=== PATIENT | female | born 1975 | race Caucasian/White ===

== ENCOUNTER 2023-10-06 10:35 | Outpatient (REF) | payer OTHER, MEDICAID, SELFPAY ==
--- NOTE | ~2023-10-06 | XR_ITS ---
EXAMINATION: XR KNEE, RIGHT CLINICAL INFORMATION: Pain in right knee. COMPARISON: None available. TECHNIQUE: Three views of the right knee. FINDINGS: Moderate joint effusion. Moderate narrowing of the medial compartment. Tiny marginal osteophytes. XR/XR knee RT 3V IMPRESSION: Moderate joint effusion. Moderate narrowing of the medial compartment.
== END 2023-10-06 10:36 | disposition home or self-care (01) ==
LOC: HO.HOSX 10:35
PROVIDERS: Visit Provider Orthopaedic Surgery
DX: M25.561 Pain in right knee (principal)
CPT/HCPCS: 73562

== ENCOUNTER 2023-10-06 13:50 | Outpatient (AMB) | payer OTHER, SELFPAY ==
--- NOTE | 2023-10-06 14:05 | MHC.OFFVIS ---
Intake Visit Reasons: Right knee pain Intake Note: Ms. Asif is a 48-year-old female who presents with complaints of progressively worsening right knee pain. She describes her pain as sharp in nature. Her pain has gotten worse over the last year in spite of continued non operative treatments. The patient states that she has had 2 cortisone injections in the past which gave her no relief. She has also failed the last 3 months of a home exercise program. She has tried meloxicam and Tylenol for 3 months which gave her minimal relief. The patient states that her right knee pain is now interfering with her activities of daily living and her ability to sleep well through the night. Allergies milk Allergy (Unknown, Uncoded 10/06/23 14:08) abdominal pain, diarrhea tightening in throat Medication List - Last Reconciled 10/06/23 by Calvin Lay MD fluticasone furoate-vilanterol 50-25 mcg/dose (Breo Ellipta) inhalation magnesium glycinate mg PO multivitamin 1 tab PO DAILY norethindrone ac-eth estradiol 1-20 mg-mcg (Microgestin) 1 tab PO DAILY sertraline 200 mg PO DAILY trazodone 25 mg PO DAILY [facility] Surgical History (Updated 10/06/23 @ 14:12 by ISIAH Milian) History of tonsillectomy and adenoidectomy History of carpal tunnel release H/O section History of placement of ear tubes [place] teeth removed H/O tubal ligation Social History (Updated 10/06/23 @ 14:12 by ISIAH Milian) Alcohol intake: never Patient Tobacco Use Status: Never used Tobacco Physical Exam Const Other: Well-nourished well-developed very friendly female awake alert and oriented x3 in no acute distress Extrem Other: Bilateral lower extremity examination shows good capillary refill, no skin lesions noted, normal sensation light touch Right knee examination shows a minimal effusion, palpable crepitus with range of motion, pain with range of motion, range of motion from -3 degrees to 110 degrees, no instability Results Reviewed Results Reviewed: X-rays of the patient's right knee show joint space narrowing, subchondral sclerosis, no acute bony abnormalities Assessment & Plan Assessment & Plan (1) Right knee pain: Code(s): M25.561 - Pain in right knee Category: Medical Plan Ms. Asif presents with progressively worsening right knee pain due to early degenerative joint disease. I had a lengthy discussion with the patient regarding the treatment options. He wishes to hold off on surgery for as long as possible. I agree with this plan. She has not gotten good relief from cortisone injections in the past. Thus, I will see whether or not the patient's insurance company will cover a viscosupplementation injection for her right knee. I will see her back once the injection is available. Feel free to call me at any time should questions regarding her orthopedic management arise. Thank you very much for asking me to see this very friendly patient. I spent 22 minutes in reviewing the patient's records and imaging studies, seeing the patient and documenting in the medical record. Orders: Orders XR knee RT 3V Today M25.561 - Pain in right knee Coding Level of Care Code New Pt Level 3 (88522) Diagnoses Right knee pain M25.561
== END 2023-10-06 14:26 | disposition home or self-care (01) ==
PROVIDERS: PCP Physician Assistant; Visit Provider Orthopaedic Surgery
DX: M17.11 Unilateral primary osteoarthritis, right knee (principal)
CPT/HCPCS: 99203

== ENCOUNTER 2023-10-19 08:00 | Outpatient (AMB) | payer OTHER, MEDICAID, SELFPAY ==
--- NOTE | 2023-10-19 08:05 | A.OFFVIS_ITS ---
Intake Visit Reasons: OV- right knee durolane injection Intake Note: Maggie is a 48 year old female who presents with complaints of progressively worsening right knee pain. She describes her pain as sharp in nature. Her pain has gotten worse over the last year in spite of continued non operative treatments. She has had cortisone injections in the past which gave her minimal relief. She has also tried Tylenol and anti-inflammatory medicines which gave her only mild relief. She has done physical therapy exercises which aggravated her pain. Allergies milk Allergy (Unknown, Uncoded 10/19/23 08:06) abdominal pain, diarrhea tightening in throat Medication List - Last Reconciled 10/20/23 by Calvin Lay MD fluticasone furoate-vilanterol 50-25 mcg/dose (Breo Ellipta) inhalation magnesium glycinate mg PO multivitamin 1 tab PO DAILY norethindrone ac-eth estradiol 1-20 mg-mcg (Microgestin) 1 tab PO DAILY sertraline 200 mg PO DAILY trazodone 25 mg PO DAILY [facility] Surgical History (Updated 10/06/23 @ 14:12 by ISIAH Milian) History of tonsillectomy and adenoidectomy History of carpal tunnel release H/O section History of placement of ear tubes [place] teeth removed H/O tubal ligation Social History (Updated 10/06/23 @ 14:12 by ISIAH Milian) Alcohol intake: never Patient Tobacco Use Status: Never used Tobacco Physical Exam Const Other: Well-nourished well-developed very friendly female awake alert and oriented x3 in no acute distress Extrem Other: Bilateral lower extremity examination shows good capillary refill, no skin lesions noted, normal sensation light touch Right knee examination shows a minimal effusion, mild crepitus with range of motion, pain with range of motion, no instability Office Procedures Joint Injection/Drain Joint Injection/Drain Primary Site: right knee Prep: site was prepped using aseptic technique Injected: 60 mg of (Durolane viscosupplementation) and 1% plain lidocaine Procedure: The patient tolerated the procedure well Coding 29175 - Large joint Procedure code (CPT) selection complete Results Reviewed Results Reviewed: X-rays of the patient's right knee show joint space narrowing, no acute bony abnormalities Assessment & Plan Assessment & Plan (1) Osteoarthritis of right knee: Code(s): M17.11 - Unilateral primary osteoarthritis, right knee Category: Medical Plan Ms. Asif presents with right knee pain due to degenerative joint disease. I had a lengthy discussion with the patient regarding the treatment options. The risks and benefits of a Durolane viscosupplementation injection were discussed at length with the patient. The patient wished to proceed. She tolerated the injection well. She will continue with her activity modifications. She will follow up with me on an as-needed basis should her symptoms not plateau at an unacceptable level over the next few months. Feel free to call me at any time should questions regarding her orthopedic management arise. I spent 22 minutes in reviewing the patient's records and imaging studies, seeing the patient and documenting in the medical record. Orders: Orders AMB Joint Injection/Aspiration 10/19/23 M17.11 - Unilateral primary osteoarthritis, right knee Coding Level of Care Code Est Pt Level 3 (28973) Diagnoses Osteoarthritis of right knee M17.11 CPT Codes Coding - 05311 Large joint: 07035 - Large joint ([id number])
== END 2023-10-19 08:29 | disposition home or self-care (01) ==
PROVIDERS: PCP Physician Assistant; Visit Provider Orthopaedic Surgery
DX: M17.11 Unilateral primary osteoarthritis, right knee (principal)
CPT/HCPCS: 20610; 99213

== ENCOUNTER → 2023-10-19 08:00 | Outpatient (BNVA) | payer OTHER, MEDICAID, SELFPAY | PROVIDERS: PCP Physician Assistant; Visit Provider Orthopaedic Surgery | DX: M17.11 Unilateral primary osteoarthritis, right knee (principal) | CPT/HCPCS: 20610; J7318 ==

== ENCOUNTER 2023-12-08 14:52 | Outpatient (AMB) | payer OTHER, MEDICAID, SELFPAY ==
--- NOTE | 2023-12-08 14:53 | MHC.OFFVIS ---
Vital Signs 12/08/23 15:00 Height 5 ft 1 in Weight 285 lb BMI 53.8 Intake Visit Reasons: Right knee pain Intake Note: Maggie is a 48 year old female who presents with complaints of progressively worsening right knee pain and giving way. The patient states that her pain has gotten worse over the last few years in spite of continued non operative treatments. She did aggravate her right knee recently when she twisted her knee while walking on the beach at [facility]. Since that time her symptoms have gotten progressively worse. She has failed the last 6 weeks of conservative treatment. She has had cortisone injections in the past which gave her minimal relief. She has also done physical therapy exercises which aggravated her pain. She has tried Tylenol and anti-inflammatory medicines which gave her minimal relief. Allergies milk Allergy (Unknown, Uncoded 10/19/23 08:06) abdominal pain, diarrhea tightening in throat Medication List - Last Reconciled 12/08/23 by Calvin Lay MD fluticasone furoate-vilanterol 50-25 mcg/dose (Breo Ellipta) inhalation magnesium glycinate mg PO multivitamin 1 tab PO DAILY norethindrone ac-eth estradiol 1-20 mg-mcg (Microgestin) 1 tab PO DAILY sertraline 200 mg PO DAILY trazodone 25 mg PO DAILY [facility] Surgical History (Updated 10/06/23 @ 14:12 by ISIAH Milian) History of tonsillectomy and adenoidectomy History of carpal tunnel release H/O section History of placement of ear tubes [place] teeth removed H/O tubal ligation Social History (Updated 10/06/23 @ 14:12 by ISIAH Milian) Alcohol intake: never Patient Tobacco Use Status: Never used Tobacco Physical Exam Vital Signs: BMI result Body Mass Index 53.8 Const Other: Well-nourished well-developed very friendly female awake alert and oriented x3 in no acute distress Extrem Other: Bilateral lower extremity examination shows good capillary refill, no skin lesions noted, normal sensation light touch Right knee examination shows a minimal effusion, mild crepitus with range of motion, tenderness along her medial joint line, positive Johan's test, no instability Results Reviewed Results Reviewed: Standing full weight-bearing x-rays of the patient's right knee show mild joint space narrowing, no acute bony abnormalities Assessment & Plan Assessment & Plan (1) Right knee pain: Code(s): M25.561 - Pain in right knee Category: Medical Plan Ms. Asif presents with right knee pain and mechanical symptoms most likely due to a tear of her medial meniscus. Thus, I will send the patient for an MRI of her right knee for further evaluation. I will see her back once the MRI is completed to discuss the findings and treatment options. Feel free to call me at any time should questions regarding her orthopedic management arise. I spent 21 minutes in reviewing the patient's records and imaging studies, seeing the patient and documenting in the medical record. Orders: Orders MR knee RT wo con 12/08/23 M25.561 - Pain in right knee Coding Level of Care Code Est Pt Level 3 (18636) Complex EM visit Add On G2211 Diagnoses Right knee pain M25.561
[2023-12-08 15:00] VITALS: BMI 53.8
== END 2023-12-08 15:12 | disposition home or self-care (01) ==
PROVIDERS: PCP Physician Assistant; Visit Provider Orthopaedic Surgery
DX: M25.561 Pain in right knee (principal)
CPT/HCPCS: 99213; G2211

== ENCOUNTER → 2023-12-08 14:52 | Outpatient (BNVA) | payer OTHER, MEDICAID, SELFPAY | PROVIDERS: PCP Physician Assistant; Visit Provider Orthopaedic Surgery ==

== ENCOUNTER 2024-01-10 08:30 | Outpatient (AMB) | payer OTHER, MEDICAID, SELFPAY ==
--- NOTE | 2024-01-10 08:33 | MHC.OFFVIS ---
Vital Signs 01/10/24 08:33 Weight 285 lb Intake Visit Reasons: OV- MRI review Right Knee Intake Note: Maggie is a 48 year old female who presents with complaints of progressively worsening right knee pain and giving way. The patient states that her pain has gotten worse over the last few years in spite of continued non operative treatments. She did aggravate her right knee recently when she twisted her knee while walking on the beach at [facility]. Since that time her symptoms have gotten progressively worse. She has failed the last 6 weeks of conservative treatment. She has had cortisone injections in the past which gave her minimal relief. She has also done physical therapy exercises which aggravated her pain. She has tried Tylenol and anti-inflammatory medicines which gave her minimal relief. She has tried wearing a knee brace which gives her minimal relief. Allergies milk Allergy (Unknown, Uncoded 10/19/23 08:06) abdominal pain, diarrhea tightening in throat Medication List - Last Reconciled 01/10/24 by Calvin Lay MD fluticasone furoate-vilanterol 50-25 mcg/dose (Breo Ellipta) inhalation magnesium glycinate mg PO multivitamin 1 tab PO DAILY norethindrone ac-eth estradiol 1-20 mg-mcg (Microgestin) 1 tab PO DAILY sertraline 200 mg PO DAILY trazodone 25 mg PO DAILY [facility] Surgical History History of tonsillectomy and adenoidectomy History of carpal tunnel release H/O section History of placement of ear tubes [place] teeth removed H/O tubal ligation Social History Alcohol intake: never Patient Tobacco Use Status: Never used Tobacco Physical Exam Const Other: Well-nourished well-developed very friendly female awake alert and oriented x3 in no acute distress Extrem Other: Bilateral lower extremity examination shows good capillary refill, no skin lesions noted, normal sensation light touch Right knee examination shows a minimal effusion, mild crepitus with range of motion, tenderness along her medial joint line, positive Johan's test, no instability Results Reviewed Results Reviewed: Standing full weight-bearing x-rays of the patient's right knee show mild diffuse degenerative changes as well as a tear of the posterior horn of the medial meniscus Assessment & Plan Assessment & Plan (1) Tear of medial meniscus of right knee: Code(s): S83.241A - Other tear of medial meniscus, current injury, right knee, initial encounter Category: Medical Plan Ms. Asif presents with progressively worsening right knee pain and mechanical symptoms due to a tear of her medial meniscus as well as early degenerative joint disease. I had a lengthy discussion with the patient regarding the treatment options. The risks and benefits of right knee arthroscopic surgery were discussed at length with the patient. The patient wishes to proceed with surgery. Surgery will most likely involve right knee diagnostic arthroscopy with arthroscopic partial medial meniscectomy. The patient does understand that she may not get 100% relief of her symptoms depending on the severity of her degenerative changes. The patient will be scheduled for next available date. She will follow-up as instructed. Feel free to call me at any time should questions regarding her orthopedic management arise. I spent 20 minutes in reviewing the patient's records and imaging studies, seeing the patient and documenting in the medical record. Coding Level of Care Code Est Pt Level 3 (98438) Complex EM visit Add On G2211 Diagnoses Tear of medial meniscus of right knee S83.241A
== END 2024-01-10 08:49 | disposition home or self-care (01) ==
PROVIDERS: PCP Physician Assistant; Visit Provider Orthopaedic Surgery
DX: S83.241A Other tear of medial meniscus, current injury, right knee, initial encounter (principal)
CPT/HCPCS: 99213; G2211

== ENCOUNTER → 2024-01-10 08:30 | Outpatient (BNVA) | payer OTHER, MEDICAID, SELFPAY | PROVIDERS: PCP Physician Assistant; Visit Provider Orthopaedic Surgery ==

== ENCOUNTER 2024-01-30 07:54 | Day surgery (SDC) | payer OTHER, MEDICAID, SELFPAY ==
[2024-01-26 09:39] VITALS: BMI 53.8
--- NOTE | 2024-01-26 14:17 | HO.ANESPROP2 ---
Documented by User: Jillian Lopez NP 01/26/24 14:18 HPI - Anesthesia Eval Consult details Narrative: 48yo F for Right Knee Arthroscopy,with partial medial meniscectomy PMFSH Active Problems Active Problems: All Active Problems Tear of medial meniscus of right knee (Acute) Osteoarthritis of right knee (Acute) Right knee pain (Acute) Past Medical History Medical History Diabetes Sleep apnea Asthma Osteoarthritis Surgical History Surgical History History of tonsillectomy and adenoidectomy History of carpal tunnel release H/O section History of placement of ear tubes [place] teeth removed H/O tubal ligation Social History Social History Alcohol intake: never Patient Tobacco Use Status: Never used Tobacco Use of substances other than those prescribed or required for medical reasons: No Are you DNR?: No Advance Directives: No Advance Directives Information Provided: Yes Advance Directives on File: No Recently lost weight without trying: No Nutrition Risks: No Nutritional Risk Patient : No Meds Allergies Allergy/AdvReac Type Severity Reaction Status Date / Time milk Allergy Intermediate Gastrointestinal Verified 01/26/24 09:37 Upset/tightening of throat amoxicillin [From Augmentin] Allergy Stomach Verified 01/30/24 08:50 Upset clavulanic acid Allergy Stomach Verified 01/30/24 08:50 [From Augmentin] Upset Home Medications ?Medication ?Instructions ?Recorded ?Confirmed ?Last Taken ?Type fluticasone furoate 50 1 inh inhalation DAILY 10/06/23 01/26/24 01/30/24 History mcg-vilanterol 25 mcg/dose inhalation powder (Breo Ellipta) magnesium glycinate 100 mg PO DAILY 10/06/23 01/26/24 Unknown History multivitamin 1 tab PO DAILY 10/06/23 01/26/24 Unknown History norethindrone acetate 1 mg-ethinyl 1 tab PO DAILY 10/06/23 01/26/24 Unknown History estradiol 20 mcg tablet (Microgestin) sertraline 200 mg capsule 200 mg PO DAILY 10/06/23 01/26/24 Unknown History trazodone 50 mg tablet 25 mg PO DAILY 10/06/23 01/26/24 Unknown History albuterol sulfate 90 mcg/actuation 2 puff inhalation Q4H PRN 01/26/24 01/26/24 Unknown History aerosol inhaler Shortness Of Breath Or Wheezing Exam Height,Weight and Vital Signs: Height 5 ft 1 in Weight 129.274 kg Assessment and Plan Assessment Anesthesia Assessment: Chart Reviewed Documented by User: Ivet Hannah MD 01/30/24 09:22 [facility] Past Medical History Medical History Diabetes Sleep apnea Asthma Osteoarthritis Family History Family history of problems with anesthesia: No Surgical History Surgical History History of tonsillectomy and adenoidectomy History of carpal tunnel release H/O section History of placement of ear tubes [place] teeth removed H/O tubal ligation History of Problems with Anesthesia: No Social History Social History Alcohol intake: never Patient Tobacco Use Status: Never used Tobacco Use of substances other than those prescribed or required for medical reasons: No Are you DNR?: No Advance Directives: No Advance Directives Information Provided: Yes Advance Directives on File: No Recently lost weight without trying: No Nutrition Risks: No Nutritional Risk Patient : No Meds Allergies Allergy/AdvReac Type Severity Reaction Status Date / Time milk Allergy Intermediate Gastrointestinal Verified 01/26/24 09:37 Upset/tightening of throat amoxicillin [From Augmentin] Allergy Stomach Verified 01/30/24 08:50 Upset clavulanic acid Allergy Stomach Verified 01/30/24 08:50 [From Augmentin] Upset Home Medications ?Medication ?Instructions ?Recorded ?Confirmed ?Last Taken ?Type fluticasone furoate 50 1 inh inhalation DAILY 10/06/23 01/26/24 01/30/24 History mcg-vilanterol 25 mcg/dose inhalation powder (Breo Ellipta) magnesium glycinate 100 mg PO DAILY 10/06/23 01/26/24 Unknown History multivitamin 1 tab PO DAILY 10/06/23 01/26/24 Unknown History norethindrone acetate 1 mg-ethinyl 1 tab PO DAILY 10/06/23 01/26/24 Unknown History estradiol 20 mcg tablet (Microgestin) sertraline 200 mg capsule 200 mg PO DAILY 10/06/23 01/26/24 Unknown History trazodone 50 mg tablet 25 mg PO DAILY 10/06/23 01/26/24 Unknown History albuterol sulfate 90 mcg/actuation 2 puff inhalation Q4H PRN 01/26/24 01/26/24 Unknown History aerosol inhaler Shortness Of Breath Or Wheezing Exam Airway Mallampati Class: III (no neck, super morbid ) TM Dist: >3cm Neck ROM: Full Heart: rrr Lungs: cta Assessment and Plan Assessment Anesthesia Assessment: Anesthesia Plan Discussed Final Anesthetic Review Family History of Problems with Anesthesia: No History of Problems with Anesthesia: No NPO: Yes ASA Class: III Final Preanesthetic Review: No Changes in Pt Med Stat, Meds/Allgs Chart Reviewed, Consent Obtained/Reviewed and Anes Risks/Benef Reviewed Patient Risk: Intermediate Procedure Risk: Low Anesthetic Plan Anesthetic Plan: MAC: Disposition: Standard PACU
[2024-01-30] VITALS (11 sets, daily range): BP systolic 95–138; BP diastolic 40–106; PULSE 68–75; RESP 12–17; TEMP 36.3–36.6; O2SAT 92–100; BMI 53.1
[2024-01-30 09:08] LABS: Glucose, Whole Blood 96 mg/dL (60-115)
[2024-01-30] MEDS: Lactated Ringers 1,000 ML 100 ML IVCONT (09:43)
--- NOTE | 2024-01-30 11:24 | P.BOP_ITS ---
Brief Operative Note Date of Service: 01/30/24 Pre-op diagnosis: Right knee medial meniscus tear, right knee degenerative joint disease Post-op diagnosis: same Procedure: Right knee diagnostic arthroscopy with right knee arthroscopic partial medial meniscectomy, right knee arthroscopic chondroplasty of the undersurface of the patella as well as the trochlear groove Implants: none Surgeon: Calvin Lay MD Anesthesia: GLMA Was an Medical Insurance Biller used for this Procedure?: No Estimated blood loss (mL): 10 Pathology: none sent Condition: stable Disposition: PACU
--- NOTE | 2024-01-30 11:25 | W.PM.OPN ---
Operative Note Operative Note Date of Service: 01/30/24 Narrative: After the patient was identified as Maggie Asif and her right knee was initialed by myself they were brought to the operating room where general anesthesia was induced by the anesthesiologist in routine fashion. The patient was given 2 g of IV Ancef for infection prophylaxis. A formal time-out was completed. The patient's right lower extremity was prepped and draped in sterile fashion. Marcaine with epinephrine was injected into the planned incision sites as well as their right knee joint. A # 11 scalpel blade was used to make an anterolateral portal 1 cm proximal to the joint line and 1 cm lateral to the patellar tendon. Blunt trocar technique was used into the suprapatellar pouch with the knee in extension. Diagnostic arthroscopy showed multiple bands of thickened plica which would be excised at the end of the procedure. There were no loose bodies or abnormalities found in either the medial or lateral gutters. There were diffuse grades 1 and 2 degenerative changes of the undersurface of the patella as well as grades 1 and 2 degenerative changes of the trochlear groove. The patient's knee was flexed to 45 degrees and a valgus force was placed upon it. The medial compartment was entered. An anteromedial portal was made 1 cm proximal to the joint line and 1 cm medial to the patellar tendon. Probing of the medial meniscus showed a radial tear of the posterior horn. A partial medial meniscectomy was performed using the arthroscopic shaver. Following the partial meniscectomy the remainder of the meniscus tissue was stable. There were minimal degenerative changes of the medial femoral condyle and medial tibial plateau articular surfaces. The patient's knee was then placed into a neutral position. There was no injury to the anterior cruciate ligament. The patient's knee was then placed into the figure of 4 position and the lateral compartment was entered. There were minimal degenerative changes of the lateral femoral condyle and lateral tibial plateau. There was no evidence of lateral meniscus tearing. The patient's knee was once again brought into extension and the suprapatellar pouch was entered. The arthroscopic shaver and the ArthroCare Wand were used to excise the thickened bands of plica. The undersurface of the patella and the trochlear groove articular surface were made smooth using the arthroscopic shaver. The knee joint was irrigated and then drained. All arthroscopic instruments were removed. The 2 portals were closed with 3-0 nylon interrupted suture. The knee joint was injected with Marcaine. Dry sterile dressing and Demetris bandages were placed over the patient's knee. The patient was awoken and extubated in the operating room. They were transferred to the recovery room in stable condition.
[2024-01-30] MEDS: fentaNYL citrate/PF 100 MCG/2 ML VIAL 50 MCG IVPUSH (11:39)
[2024-01-30] MEDS: cefTRIAXone sodium 1 GM VIAL IVPUSH (11:41)
== END 2024-01-30 12:47 | disposition home or self-care (01) ==
PROVIDERS: Visit Provider Orthopaedic Surgery
PROC: (CPT 29870; principal; 2024-01-30 09:00)
DX: S83.241A Other tear of medial meniscus, current injury, right knee, initial encounter (principal); X50.1XXA Overexertion from prolonged static or awkward postures, initial encounter; Y93.01 Activity, walking, marching and hiking; Y92.832 Beach as the place of occurrence of the external cause; Y99.9 Unspecified external cause status; M67.51 Plica syndrome, right knee; M17.11 Unilateral primary osteoarthritis, right knee; M23.51 Chronic instability of knee, right knee; M25.561 Pain in right knee; J45.909 Unspecified asthma, uncomplicated; E11.9 Type 2 diabetes mellitus without complications; G47.30 Sleep apnea, unspecified; Z79.51 Long term (current) use of inhaled steroids; Z79.899 Other long term (current) drug therapy; Z88.1 Allergy status to other antibiotic agents; Z91.011 Allergy to milk products; Z98.51 Tubal ligation status
CPT/HCPCS: 29881; 82947; J0131; J0171; J0665; J0690; J0696; J1100; J2003; J2371; J2405; J2704; J2795; J3010

== ENCOUNTER → 2024-01-30 07:54 | Outpatient (BNV) | payer OTHER, MEDICAID, SELFPAY | PROVIDERS: Visit Provider Orthopaedic Surgery | DX: S83.241A Other tear of medial meniscus, current injury, right knee, initial encounter (principal) | CPT/HCPCS: 29881 ==

== ENCOUNTER 2024-02-14 08:35 | Outpatient (AMB) | payer OTHER, MEDICAID, SELFPAY ==
--- NOTE | 2024-02-14 08:48 | A.OFFVIS_ITS ---
Intake Visit Reasons: PO RT Knee 01/30/24 DR Intake Note: Maggie is a 48 yo female who presents with complaints of mild to moderate discomfort in her right knee after undergoing right knee arthroscopic surgery on 01/30/2024. She denies any fevers or chills. She did have a rash along her incisions which has resolved over the last week. She continues to walk with a cane when she is out of her home. She is no longer taking narcotics for her discomfort. Allergies milk Allergy (Intermediate, Verified 01/26/24 09:37) Gastrointestinal Upset/tightening of throat amoxicillin [From Augmentin] Allergy (Verified 01/30/24 08:50) Stomach Upset clavulanic acid [From Augmentin] Allergy (Verified 01/30/24 08:50) Stomach Upset Medication List - Last Reconciled 02/14/24 by Calvin Lay MD albuterol sulfate 90 mcg/actuation 2 puffs inhalation Q4H PRN diphenhydramine HCl (Benadryl) 25 mg PO Q8H PRN fluticasone furoate-vilanterol 50-25 mcg/dose (Breo Ellipta) 1 inh inhalation DAILY magnesium glycinate 100 mg PO DAILY multivitamin 1 tab PO DAILY norethindrone ac-eth estradiol 1-20 mg-mcg (Microgestin) 1 tab PO DAILY sertraline 200 mg PO DAILY trazodone 25 mg PO DAILY PFSH Medical History Diabetes Sleep apnea Asthma Osteoarthritis Surgical History History of tonsillectomy and adenoidectomy History of carpal tunnel release H/O section History of placement of ear tubes [place] teeth removed H/O tubal ligation Social History Alcohol intake: never Patient Tobacco Use Status: Never used Tobacco Physical Exam Extrem Other: Right knee examination shows that the surgical incisions are healing well, no erythema, minimal discomfort with range of motion, minimal crepitus with range of motion Assessment & Plan Assessment & Plan (1) Right knee pain: Code(s): M25.561 - Pain in right knee Category: Medical Plan Ms. Asif is doing well after undergoing right knee arthroscopic surgery on 01/30/2024. Her sutures were removed and Steri-Strips placed over her inc isions. She will continue with her home exercise program. I will clear her to return to work once her discomfort and strength have improved. She will contact me prior to her follow-up appointment in 2 months should any questions or concerns arise. Feel free to call me at any time should questions regarding her orthopedic management arise. Coding Level of Care Code Global (65808) Diagnoses Right knee pain M25.561
== END 2024-02-14 09:02 | disposition home or self-care (01) ==
LOC: HO.HOS 08:36
PROVIDERS: PCP Physician Assistant; Visit Provider Orthopaedic Surgery
DX: M25.561 Pain in right knee (principal)
CPT/HCPCS: 99024

== ENCOUNTER → 2024-02-14 08:35 | Outpatient (BNVA) | payer OTHER, MEDICAID, SELFPAY | PROVIDERS: PCP Physician Assistant; Visit Provider Orthopaedic Surgery ==

== ENCOUNTER 2024-04-17 09:21 | Outpatient (AMB) | payer OTHER, MEDICAID, SELFPAY ==
--- NOTE | 2024-04-17 09:30 | A.OFFVIS_ITS ---
Vital Signs 04/17/24 09:31 Height 5 ft 1 in Weight 281 lb BMI 53.1 Intake Visit Reasons: PO RT Knee 01/30/24 DR-2 month follow up Intake Note: Maggie is a 48 year old female who presents with complaints of mild intermittent discomfort in her right knee after undergoing right knee arthroscopic surgery on 01/30/2024. She continues with her home exercise program. She is planning to return to work on April 23. Allergies milk Allergy (Intermediate, Verified 04/17/24 09:31) Gastrointestinal Upset/tightening of throat amoxicillin [From Augmentin] Allergy (Verified 04/17/24 09:31) Stomach Upset clavulanic acid [From Augmentin] Allergy (Verified 04/17/24 09:31) Stomach Upset Medication List - Last Reconciled 04/17/24 by Calvin Lay MD albuterol sulfate 90 mcg/actuation 2 puffs inhalation Q4H PRN famotidine 10 mg PO DAILY fluticasone furoate-vilanterol 50-25 mcg/dose (Breo Ellipta) 1 inh inhalation DAILY magnesium glycinate 100 mg PO DAILY multivitamin 1 tab PO DAILY norethindrone ac-eth estradiol 1-20 mg-mcg (Microgestin) 1 tab PO DAILY omeprazole 20 mg PO DAILY rosuvastatin 10 mg PO BEDTIME sertraline 200 mg PO DAILY trazodone 25 mg PO DAILY [facility] Medical History Diabetes Sleep apnea Asthma Osteoarthritis Surgical History History of tonsillectomy and adenoidectomy History of carpal tunnel release H/O section History of placement of ear tubes [place] teeth removed H/O tubal ligation Social History Alcohol intake: never Patient Tobacco Use Status: Never used Tobacco Physical Exam Vital Signs: BMI result Body Mass Index 53.1 Const Other: Well-nourished well-developed very friendly female awake alert and oriented x3 in no acute distress Extrem Other: Right knee examination shows that the surgical incisions are well healed, no erythema, minimal crepitus with range of motion, minimal discomfort with range of motion, no instability Assessment & Plan Assessment & Plan (1) Right knee pain: Code(s): M25.561 - Pain in right knee Category: Medical Plan Ms. Asif continues to do well after undergoing right knee arthroscopic surgery on 01/30/2024. She will continue with her home exercise program. She can return to work as scheduled from my standpoint. She will contact me prior to her follow-up appointment in 3 months should any questions or concerns arise. Feel free to call me at any time should questions regarding her orthopedic management arise. Coding Level of Care Code Global (50366) Diagnoses Right knee pain M25.561
[2024-04-17 09:31] VITALS: BMI 53.1
--- OUTSIDE RECORDS SUMMARY | 2024-04-17 09:33 | XMS_ITS ---
Author Organization [facility] Address [address] [place] [address] Care Team Providers Care Respite Coordinator Name Role Phone Rosa Bell Primary Care Provider Lulú Bhagat Unavailable [phone] REASON FOR VISIT NS 08/15/2023 Encounters Encounter Location Date [facility] [address] [facility] [place] [address] [facility]/15/2023 Lulú Jordan Plan Of Treatment No Information Progress Notes * Maggie ASIF LDOB:[birth year] (48 yo F)Acc No.[id number]:08/15/2023 Patient:?Maggie Asif :1975???Age:48 Y???Sex:Female [address]:[address] [place] [address], [address] , [place] [address] * true * Date:? Generated for Nickolas ramirez/Alistair/eTransmitting on:?04/17/2024 09:32 AM EST
--- OUTSIDE RECORDS SUMMARY | 2024-04-17 09:33 | XMS_ITS ---
Author Organization [facility] [place] Address [address] [place] [address] Care Team Providers Care Jewelry Engraver Name Role Phone Rosa Bell Primary Care Provider Lulú Bhagat [phone] Medications Medication SIG (Take, Route, Frequency, Duration) Notes Start Date End Date Status Physical Therapy . . . 2-3x/week for 3- 4 weeks 05/12/2023 Active Active Sertraline HCl 200 MG 1 capsule Orally O nce a day Active Custom Orthotics as directed 05/12/2023 Active OT Refurbishment Refurbish with full length extensions 05/12/2023 Active Singulair 10 MG 1 tablet Orally Once a day Not-Taking Multivitamin - 1 tablet Orally Once a day Active Breo Ellipta Active Magnesium Active Encounters Encounter Location Date Provider Diagnosis [address] [address] 08/15/2023 Lulú Jordan Plan Of Treatment No Information Progress Notes * Maggie ASIF LDOB:[birth year] (48 yo F)Acc No.[id number]:08/15/2023 Progress Note Patient:?Maggie ASIF Provider:?Lulú Jordan DPM :1975???Age:48 Y???Sex:Female D ate:08/15/2023 Address:[address] [place], [place] [id number] Pcp:Rosa Bell Subjective: * Chief Complaints: * ??? * Medical History:? * Medications:?Taking Breo Ell ipta , Taking Magnesium , Taking Multivitamin - Tablet 1 tablet Orally Once a day , Taking , Taking Sertraline HCl 200 MG Capsule 1 capsule Orally Once a day , Taking Physical Therapy . . . . 2-3x/week , Taking Custom Orthotics as directed , Taking OT Refurbishment Refurbish with full length extensions , Not-Taking/PRN Singulair 10 MG Tablet 1 tablet Orally Once a day Objective: * Vitals:? Assessment: Plan: * Treatment: * Images: * The named appointment provid er may or may not be the originator of this progress note, and it is not deemed complete until electronically signed by the appointment provider. Sign off status: Pending * Provider:?Lulú Jordan DPM Date:?09/2023 Generated for Nickolas ramirez/Alistair/Kellie on:?04/17/2024 09:32 AM EST
--- OUTSIDE RECORDS SUMMARY | 2024-04-17 09:33 | XMS_ITS ---
Author Organization [facility] sheela Plummer Address [address] [facility] [place] [address] Care Team Providers Care Machinist [employer] Name Role Phone Rosa Bell Primary Care Provider Lulú Bhagat Unavailable [phone] Allergies Allergen (clinical drug ingredient) Drug/Non Drug Allergy documented on EMR Reaction Allergy Type Onset Date Status amoxicillin Amoxicillin stomach upset Drug Allergy Active REASON FOR VISIT pt states last pcp visit 05/04/2023, Heel pain, At Risk Footcare Medications Medication SIG (Take, Route, Frequency, Duration) Notes Start Date End Date Status Singulair 10 MG 1 tablet Orally Once a day Not-Taking Active Multivitamin - 1 tablet Orally Once a day Active Physical Therapy . . . 2-3x/week for 3- 4 weeks 05/12/2023 Active Sertraline HCl 200 MG 1 capsule Orally O nce a day Active Magnesium Active Breo Ellipta Active Custom Orthotics as directed 05/12/2023 Active OT Refurbishment Refurbish with full length extensions 05/12/2023 Active Social History Tobacco Use: Social History Observation Description Date Details (start date - stop date) Never Smoker NA - NA Tobacco Use/Smoking Question Answer Notes Are you a: nonsmoker Additional Findings: Tobacco Non-User Aggressive non-smoker Alcohol Screen Question Answer Notes Did you have a drink containing alcohol in the p ast year? Yes Points 0 Interpretation Negative Problems Problem Type SNOMED Code ICD Code Onset Dates Problem Status W/U Status Risk Notes Problem [id number] Type 2 diabetes mellitus with polyneuropathy (E11.42) Active confirmed Vital Signs Height 5ft 1in in 05/12/2023 Weight 289 lbs 05/12/2023 BMI 54.6 kg/m2 05/12/2023 Encounters Encounter Location Date Provider Diagnosis [facility] [address] 05/12/2023 Lulú Jordan Plantar fasciitis, bilateral M72.2 ; Type 2 diabetes mellitus with polyneuropathy E11.42 ; Calcaneal spur, left M77.32 ; Calcaneal spur, right M77.31 ; Acquired pes planus, left M21.42 and Acquired pes planus, right M21.41 Assessments Encounter Date Diagnosis (ICD Code) Assessment Notes Treatment Notes Treatment Clinical Notes Section Notes 05/12/2023 Plantar fasciitis, bilateral (ICD-10 - M72.2) Patient Educated with: HEEL CORD STRETCHES.pdf (HEEL CORD STRETCHES.pdf ) Patient Educated with: RICE THERAPY.pdf (RICE THERAPY.pdf) 05/12/2023 Type 2 diabetes mellitus with polyneuropathy (ICD-10 - E11.42) 05/12/2023 Calcaneal spur, left (ICD-10 - M77.32) 05/12/2023 Calcaneal spur, right (ICD-10 - M77.31) 05/12/2023 Acquired pes planus, left (ICD-10 - M21.42) 05/12/2023 Acquired pes planus, right (ICD-10 - M21.41) Plan Of Treatment Medication Medication Name Sig Start Date Stop Date Notes Physical Therapy . . . 2-3x/week for 3-4 weeks 05/12/2023 Custom Orthotics as directed 05/12/2023 OT Refurbishment Refurbish with full length extensions 04/2023 Treatment Notes Assessment Notes Plantar fasciitis, bilateral Patient Edu cated with: HEEL CORD STRETCHES.pdf (HEEL CORD STRETCHES.pdf) Patient Educated with: RICE THERAPY.pdf (RICE THERAPY.pdf) Pending Test Test Name Order Date X ray : Foot, left 3V 05/12/2023 X ray : Foot, right 3V 05/12/2023 Next Appt Details Follow Up: 2 Months, Reason: Progress Notes * Maggie ASIF LDOB:[birth year] (48 yo F)Acc No.[id number]:05/12/2023 Progress Notes Patient:?Maggie Asif Provider:?Lulú Jrodan DPM :1975???Age:48 Y???Sex:Female D ate:05/12/2023 Address:[address] [place] [address], [facility] [address] , [id number] Pcp:Rosa Bell Subjective: * Chief Complaints: * ???Pt states last pcp visit 05/04/2023Heel painAt Risk Footcare * HPI: ???Heel pain:?Nature:?tenderness, sharp pain, stiffness.?Location:?Proximal plantar aspect of Heel , B/L.?Duration:?several years .?Onset/Cause:?gradual, work/job.?Course:?worse.?Aggrevated:?standing, walking, walking first thing in the morning/after rest.?Treatments:?rest/alter normal daily activity, custom orthoses, stretching, corticosteriod injection.?At Risk footcare:?Pt States Last PCP Visit:?Date?04/12/2023 * ROS:?General/Constitutional:?Nausea?denies, denies.?Vomiting?denies, denies.?Hunger Thirst?denies, denies.?Loss appetite?denies, denies.?Chills?denies, denies.?Fatigue?admits, denies.?Fever?denies, denies.?Night Sweats denies, denies.?Unexplained weight loss?denies, denies.?Unexplained weight gain?denies, denies.?HEENTM:?Dentures?denies, denies.?Dizziness?admits, denies.?Glasses/contacts?admits, denies.?Retinopathy?denies, denies.?Blurred/double vision?denies, denies.?TMJ?denies, denies.?Discharge/drainage?denies, denies.?Implants?denies, denies.?Sore throat?denies, denies.?Dental implants?denies, denies.?Hard of hearing ?admits, denies.?Difficulty chewing/swallowing/speaking?denies, denies.?Nose bleeds?denies, denies.?Sore mouth?denies, denies.?Respiratory:?On Oxygen?denies, denies.?Pneumonia/pleurisy?denies, denies.?Bronchitis?denies, denies.?Emphysema?denies, denies.?Coughing?denies, denies.?Cough blood?denies, denies.?Shortness of breath?denies, denies.?Wheezing?denies, denies.?Cardiovascular:?Pacemaker?denies, denies.?MVP?denies, denies.?WPW?denies, denies.?CHF?denies, denies.?Heart attack?denies, denies.?Septal defect?denies, denies.?Rapid beat?denies, denies.?Chest pain ?denies, denies.?Atrial Fib.?denies, denies.?Murmur/Palpitations?denies, denies.?Gastrointestinal:?Hemorrhoids?denies, denies.?Stomach/Abdominal pain?denies, denies.?Dark blood stool?denies, denies.?Irritable bowel ?denies, denies.?Constipation?denies, denies.?Diarrhea?denies, denies.?Hematology:?Swelling?denies, denies.?Clots?denies, denies.?Varicose Veins?denies, denies.?Bruising?denies, denies.?Bleeding problem?denies, denies.?Genitourinary:?Blood urine?denies, denies.?Frequent/Painfu/urination/bladder control?admits, denies.?Kidney stones?denies, denies.?Infection (UTI)?denies, denies.?Nephropathy?denies, denies.?sex trans dis (STD)?denies, denies.?Prostate?denies, denies.?Musculoskeletal:?Hammertoes?denies, denies.?Bunions?admits, denies.?Back Pain?admits, denies.?Muscle Cramps/ Resting?denies, denies.?Muscle cramps / walking?admits, denies.?Generalized aches and pains?admits, denies.?Weakness?denies, denies.?Integ.:?Vincent?denies, denies.?Scars?denies, denies.?Corns/calluses?denies, denies.?Ingrown nails?denies, denies.?Painful nails?denies, denies.?Open Sores?denies, denies.?Rashes?denies, denies.?Neurologic:?Difficulty sleeping?admits, denies.?Brain disorder?denies, denies.?Numbness?denies, denies.?Balance trouble?denies, denies.?Confusion?denies, denies.?Fainting/blackouts?denies, denies.?Tingling?denies, denies.?Tremors?denies, denies.? * Medical History:? * Surgical History:?tubal liga tion 2016wisdom teeth extraction Tubes in/out of ears Carpel Tunnel Revision 2014tonsillectomy * Hospitalization/Major Diagno stic Procedure:?No Hospitalization History. * Family History:?Mother: aliv e, foot problems, diagnosed with Family history of arthritis, Diabetic - NIDDM, Unspecified essential hypertension.?Father: alive, foot problems, diagnosed with Family history of arthritis, Diabetic - NIDDM, Unspecified essential hypertension.?Son(s): alive, diagnosed with Diabetic - NIDDM.? * Social History:?Tobacco Use:?Tobacco Use/Smoking?Are you a:?nonsmoker ?Additional Findings: Tobacco Non-User?Aggressive non-smoker ???Drugs/Alcohol:?Drugs?Have you used drugs other than those for medical reasons in the past 12 months??No ?Alcohol Screen?Did you have a drink containing alcohol in the past year??Yes ?Points?0 ?Interpretation?Negative ???Miscellaneous:?Caffeine: yes, frequency: , 1-2 cups per day. ?Children: yes, 3. ?Exercise: yes, walking. ?Marital status: single. ?Occupation: [employer]. 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 Magnesium Multivitamin - Tablet 1 tablet Orally Once a day Sertraline HCl 200 MG Capsule 1 capsule Orally Once a dayTaking Breo Ellipta Taking Magnesium Taking Multivitamin - Tablet 1 tablet Orally Once a dayTaking Taking Sertraline HCl 200 MG Capsule 1 capsule Orally Once a dayNot-Taking/PRNSingulair 10 MG Tablet 1 tablet Orally Once a dayMedication List reviewed and reconciled with the patientNot-Taking/PRN Singulair 10 MG Tablet 1 tablet Orally Once a dayMedication List reviewed and reconciled with the patient * Allergies:?Amoxicillin: stom ach upset - Allergyyes[Allergies Verified] Objective: * Vitals:?Ht: 5ft 1in, Wt:289, BMI:54.6, Shoe size: 8.5 XXW Mens, BS: not taken, Ht-cm: 154.94 cm, Wt-k.09 kg. * ???Past Orders: ???Lab:HEMOGLOBIN A1C (GLYCO HEMOGLOBIN) (Order Date - 02/23/2023) (Collection Date - 02/23/2023) ? Value Reference Range ?HEMOGLOBIN A1C (HH) 6.7 * Examination: ???Ophthalmology Referral: ?DIABETES EYE EXAM?Heel Pain: ?INSPECTION REVEALS:?Pain on Palpation to Plantar Fascia med. and central bands, intrinsic musc., infra-calcaneal bursa, and med calc tubercle, B/L, No pain: posterior/superior heel, achilles bursa/tendon, sinus tarsi, peroneals, or with lateral heel compression; no limited STJ ROM, calor, or ecchymosis.?X-Rays - IMAGING REPORT: ?Clinical Indication(s):? Evaluate for Fracture, Evaluate Biomechanical Deformity.?Views:?3 views of Foot, LAT, LO, MO , B/L.?Findings:?normal bone and soft tissue density consistent for patients age and sex, navicular/cuneiform plantar subluxation with anterior cyma line, positive infra-calcaneal exostosis, no coalitions identified.?Fracture:?Negative fractures identified.?Orthopedic: ?MUSCLE STRENGTH:?5/5 all groups in a symmetrical fashion, B/L.?GAIT ABNORMALITY:? antalgic.?FOOT MORPHOLOGY:? Pes Planus structure, Decreased Ankle joint dorsiflexion ROM, knee extended.?FOOTWEAR:? worn, OT were inspected and noted to be severely worn , in poor condition not giving proper support at the present time.?Neurological: ?SENSORY:? Neurological exam demonstrates, reduced light touch sensation, reduced sharp/dull pin prick discrimination , B/L, 5.07 monofilament test performed at plantar aspects of 5 varied sites per foot shows sensation, reduced , B/L.?Dermatologic: ?SKIN FINDINGS:?Skin exam reveals normal color, texture, elasticity, and turgor. There are no masses, nor excrescences. The interspaces are clear, B/L.?Vascular: ?DP PULSES:?3/4, B/L.?PT PULSES:?3/4, B/L.?CAPILLARY FILL TIME:?immediate, all digits, B/L.?SKIN TEMPERTURE GRADIENT OF THE LOWER EXTERMITIES:?normal, warm to cool, proximal to distal, B/L, B/L.?HAIR GROWTH/TEXTURE/ELASTICITY/TURGOR:?normal, B/L.?PIGMENTATION:?normal, B/L.?EDEMA:?absent, B/L.? Assessment: * Assessment: 1.?Type 2 diabetes mellitus with polyneuropathy - E11.42?2.?Plantar fasciitis, bilateral - M72.2 (Primary), Chronic problem, Worse (4)?3.?Calcaneal spur, left - M77.32?4.?Calcaneal spur, right - M77.31?5.?Acquired pes planus, left - M21.42?6.?Acquired pes planus, right - M21.41? Plan: * Treatment: * Imaging:? * ?Imaging: X ray : Foot, left 3V ?Imaging: X ray : Foot, right 3V * Procedure Codes:?37821 X-RAY EXAM OF RIGHT FOOT 3V, Modifiers: 26 , [id number] X- RAY EXAM OF LEFT FOOT 3V, Modifiers: 26 , LT * Preventive Medicine:? ??Counseling:?Discussion:?-04: Office or other outpatient visit for the evaluation and management of a new patient, which required a medically appropriate history and/or examination and MODERATE level of DECISION MAKING for: 1 OR MORE CHRONIC PROBLEM(S) THATS WORSENING, 2 STABLE CHRONIC PROBLEMS, A NEWLY DIAGNOSED PROBLEM WITH UNCERTAIN PROGNOSIS, AN ACUTE COMPLICATED INJURY WITH MULTIPLE TREATMENT OPTIONS, OR AN ACUTE PROBLEM WITH ACCOMPANYING SYSTEMIC SYMPTOMS, THAT POSE(S) A MODERATE RISK OF MORBIDITY. THIS CONDITION MAY ALSO INCLUDE RX DRUG MANAGEMENT, OR A DECISON FOR MINOR SURGERY. The visit on the day of the encounter encompassed interpreting the data and educating the patient as to the nature of their condition, treatment options available according to their individual PMH, meds, allergies, and overall health/living conditions, as well as any potential risks or complications that may occur from a failure to adhere to, and participate in, the recommended course of therapy. The discussion included a complete verbal, and/or written explanation of the examination results, any x-rays taken, the proposed diagnosis, and outline of the treatment plan. A schedule for future care needs was also explained. The patient verbalized an understanding of the instructions at this time and agreed to be an active participant in their treatment. If the patient should think of any questions or concerns after the visit, I have encouraged the patient to call the office.?Heel pain:?FASCIITIS: I explained to the patient the possible etiologies of Plantar Fasciitis including foot type/shoegear/activity level/exercise routine and the risks/benefits of all the different treatment options for heel pain including: No treatment at all, Rest, Ice, NSAIDs(only if well tolerated after meals), New/supportive Shoegear, Strappings and Tapings, Stretching exercises, Deep Tissue Massage, Heel cups/cushions, Arch support/shoe inserts, Custom orthoses, Topical analgesics including Aspercream/Voltaren gel, Night splint AFO for am stiffness, Cortisone injection therapy, Cast boot with crutches/cane/or walker for assisted ambulation, Physical Therapy, EPAT/ESWT, Interfil injection therapy, as well as surgical [place]/Endoscopic Fasciitomy surgical procedures if needed. Recommendations were made to limit barefoot walking, eliminate wearing nonsupportive shoegear (i.e. flip-flops or sandals, or a shoe with an easily bendable, foldable, or twistable sole) and wear shoegear with a good solid sole, a supportive arch, and plenty of room for an insert/orthotic if necessary. If wearing sandals was required by the patient, we recommended orthopedic sandals such as Orthoheel or Birkenstock even while in the home. If the patient wore heels in the past, we recommended they continue, but eliminate the use of flats. The advantages and disadvantages of each option were discussed and the patients questions re: types of shoegear, custom vs prefabricated inserts, activity level, PO vs Topical medications (and their respective potential complications/drug interactions/side effects), and consistency in home treatment regimens for optimal success were answered to their satisfaction. Literature detailing plantar fasciitis and the various treatment options were dispensed and reviewed.?Orthotics:?I explained to the patient the benefits of OT use. I explained that orthoses are medically necessary to decrease the foot pain through proper mechanical control, support of their foot , decrease stretch/strain on the plantar fascia, Rx OT given and recommended [employer]P.R.I.C.E.:?The patient was counseled on the use of P.R.I.C.E. and NSAIDS (if well tolerated) to aid in the recovery from their painful condition.?Shoe Gear Counseling:?The patient and I reviewed the types of shoes they should be wearing. My recommendation included obtaining a well-fitted shoe with a good supportive, non-foldable nor twistable sole, plenty of toe/room for the forefoot, and proper arch support. Based on todays examination, I recommended the patient look for new shoes, by having their feet professionally measured. We discussed that generally the best time of the day for a shoe fitting is the afternoon. Different shoes types and brands to best match the patients occupation and vocation were discussed. Specific brand selection will be up to the patient, their individual foot condition/deformities, and fit. The patient and I reviewed the standard new shoe break in period by wearing them for a few hours a day while checking for redness or sores as wear time is increased. The patient verbally confirmed to understanding the information discussed.?Stretching Exercises:?Stretching and deep tissue massage exercises for the patients injury/diagnosis were discussed and demonstrated, handouts were dispensed.?X-rays:?Discussed and reviewed the X-rays with the patient. We discussed how the findings relate to the patients symptoms/complaints. Answered any and all questions..? * Follow Up:?2 Months * Images: * Sign off status: Completed true * Provider:?Lulú Jordan DPM Date:?04/2023 Generated for Nickolas ramirez/Alistair/Kellie on:?04/17/2024 09:32 AM EST History and Physical Notes * HPI (History of Present Illness) Category Sub-Category Detail Notes Category Not es Heel pain Duration: several years Nature: tenderness, sharp pa in, stiffness Location: Proximal plantar asp ect of Heel , B/L Onset/Cause: gradual, work/job Aggravated: standing, walking, w alking first thing in the morning/after rest Course: worse Treatments: rest/alter normal da nathan activity, custom orthoses, stretching, corticosteriod injection At Risk footcare Pt States Last PCP Visit: Date: 4 Examination Category Sub-Category Detail Notes Category Not es Heel Pain INSPECTION REVEALS: Pain on Palp ation to Plantar Fascia med. and central bands, intrinsic musc., infra-calcaneal bursa, and med calc tubercle, B/L, No pain: posterior/superior heel, achilles bursa/tendon, sinus tarsi, peroneals, or with lateral heel compression; no limited STJ ROM, calor, or ecchymosis Neurological SENSORY: Neurological exa m demonstrates, reduced light touch sensation, reduced sharp/dull pin prick discrimination , B/L, 5.07 monofilament test performed at plantar aspects of 5 varied sites per foot shows sensation, reduced , B/L Dermatologic SKIN FINDINGS: Skin exam reveal s normal color, texture, elasticity, and turgor. There are no masses, nor excrescences. The interspaces are clear, B/L Orthopedic GAIT ABNORMALITY: antalgic FOOT MORPHOLOGY: Pes Planus structure , Decreased Ankle joint dorsiflexion ROM, knee extended FOOTWEAR: worn, OT were inspec ranjeet and noted to be severely worn , in poor condition not giving proper support at the present time MUSCLE STRENGTH: 5/5 all groups in a symmetrical fashion, B/L Ophthalmology Referral DIABETES EYE EXAM Diabetic Retinopa thy Screening:: Yes Vascular DP PULSES (B): 3/4, B/L PT PULSES (B): 3/4, B/L CAPILLARY FILL TIME: immediate, all digi ts, B/L TEMPERTURE GRADIENT (C): normal, warm to cool, proximal to distal, B/L, B/L TROPHIC CONDITION-TEXTURE/ELASTICITY/TURGOR/HAIR GROWTH (B): normal, B/L EDEMA (C): absent, B/L PIGMENTATION: normal, B/L X-Rays - IMAGING REPORT Findings: normal b one and soft tissue density consistent for patients age and sex, navicular/cuneiform plantar subluxation with anterior cyma line, positive infra-calcaneal exostosis, no coalitions identified Fracture: Negative fractures i dentified Views: 3 views of Foot, LAT , LO, MO , B/L Clinical Indication(s): Evaluate for Fra cture, Evaluate Biomechanical Deformity
--- OUTSIDE RECORDS SUMMARY | 2024-04-17 09:33 | XMS_ITS | Patient Health Record ---
[facility] Organization [facility] Address [address] [facility] [place] [address] Care Team Providers Care Lead Housekeeper Name Role Phone Rosa Bell Primary Care Provider Lulú Bhagat Unavailable [phone] Allergies Allergen (clinical drug ingredient) Drug/Non Drug Allergy documented on EMR Reaction Allergy Type Onset Date Status amoxicillin Amoxicillin stomach upset Drug Allergy Active Reason For Referral No Information Medications Medication SIG (Take, Route, Frequency, Duration) Notes Start Date End Date Status Physical Therapy . . . 2-3x/week for 3- 4 weeks 05/12/2023 Active Active Sertraline HCl 200 MG 1 capsule Orally O nce a day Active Singulair 10 MG 1 tablet Orally Once a day Not-Taking Multivitamin - 1 tablet Orally Once a day Active Breo Ellipta Active Magnesium Active Custom Orthotics as directed 05/12/2023 Active [...] Problem Status W/U Status Risk Notes Problem [id number] Type 2 diabetes mellitus with polyneuropathy (E11.42) Active confirmed Vital Signs Height 5ft 1in in 05/12/2023 Weight 289 lbs 05/12/2023 BMI 54.6 kg/m2 05/12/2023 Encounters Encounter [facility] Date [facility] [place] [address] [facility]/12/[facility]23 Lulú Jordan Plantar fasciitis, bilateral M72.2 ; Type 2 diabetes mellitus with polyneuropathy E11.42 ; Calcaneal spur, left M77.32 ; Calcaneal spur, right M77.31 ; Acquired pes planus, left M21.42 and Acquired pes planus, right M21.41 [facility] [address] [place] [address] 08/15/2023 Lulú Jordan Assessments Encounter Date Diagnosis (ICD Code) Assessment Notes Treatment Notes Treatment Clinical Notes Section Notes 05/12/2023 Type 2 diabetes mellitus with polyneuropathy (ICD-10 - E11.42) 05/12/2023 Plantar fasciitis, bilateral (ICD-10 - M72.2) Patient Educated with: HEEL CORD STRETCHES.pdf (HEEL CORD STRETCHES.pdf ) Patient Educated with: RICE THERAPY.pdf (RICE THERAPY.pdf) 05/12/2023 Calcaneal spur, left (ICD-10 - M77.32) 05/12/2023 Calcaneal spur, right (ICD-10 - M77.31) 05/12/2023 Acquired pes planus, left (ICD-10 - M21.42) 05/12/2023 Acquired pes planus, right (ICD-10 - M21.41) Plan Of Treatment Pending Test Test Name Order Date X ray : Foot, left 3V 05/12/2023 X ray : Foot, right 3V 05/12/2023 Insurance Providers Payer Name Payer Address Payer Phone Subscriber Number Group Number Insured Name Patient Relationship to Insured Coverage Start Date Coverage End Date [employer] [address] [address] [place] [address] [id number] Maggie Asif Self - patient is the insured Medical (General) History Medical History History ICD Code Anxiety asthma Back,Hip,and Knee pain covid-19 Depression type II diabetes Headaches/Migraines sinusitis Warts Chicken pox Sleep apnea Endometriosis Surgical History Surgery Date(Month/Year) tubal ligation 2015 wisdom teeth extraction Tubes in/out of ears Carpel Tunnel Revision 2013 tonsillectomy
== END 2024-04-17 10:12 | disposition home or self-care (01) ==
PROVIDERS: PCP Physician Assistant; Visit Provider Orthopaedic Surgery
DX: M25.561 Pain in right knee (principal)
CPT/HCPCS: 99024

== ENCOUNTER 2024-05-02 08:09 | Outpatient (REF) | payer OTHER, MEDICAID, SELFPAY ==
--- NOTE | ~2024-05-02 | XR_ITS ---
EXAMINATION: XR KNEE 3 VIEWS RIGHT HISTORY: M25.561 - Pain in right knee COMPARISON: Comparison is made with the prior examination dated 10/06/2023. FINDINGS: Three views of the right knee are submitted. Osseous mineralization is normal. There is no fracture or dislocation. There is mild narrowing of the medial compartment. There is a small joint effusion. XR/XR knee RT 3V IMPRESSION: Small joint effusion. Mild narrowing of the medial compartment. Electronically signed by: Cricket Stephenson MD 05/03/2024 09:19 AM SLIM
== END 2024-05-02 08:10 | disposition home or self-care (01) ==
LOC: HO.HOSX 08:09
PROVIDERS: Visit Provider Orthopaedic Surgery
DX: M25.561 Pain in right knee (principal)
CPT/HCPCS: 73562

== ENCOUNTER 2024-05-02 12:27 | Outpatient (AMB) | payer OTHER, MEDICAID, SELFPAY ==
--- NOTE | 2024-05-02 13:04 | A.OFFVIS_ITS ---
Intake Visit Reasons: OV- RT knee inj 04/30/24 s/p RT Knee 01/30/24 Intake Note: Maggie is a 49 year old female who presents today for evaluation of her right knee after re-injuring it on 04/30/24 with a deli case. She denies any locking or giving way. She has been icing her knee which gives her mild relief. She questions whether or not she should work few hours at work. She did undergo right knee arthroscopic surgery on 01/30/2024. The patient states that her right knee was sore and still recovering prior to this recent injury. Allergies milk Allergy (Intermediate, Verified 05/02/24 13:04) Gastrointestinal Upset/tightening of throat amoxicillin [From Augmentin] Allergy (Verified 05/02/24 13:04) Stomach Upset clavulanic acid [From Augmentin] Allergy (Verified 05/02/24 13:04) Stomach Upset Medication List - Last Reconciled 05/02/24 by Calvin Lay MD albuterol sulfate 90 mcg/actuation 2 puffs inhalation Q4H PRN famotidine 10 mg PO DAILY fluticasone furoate-vilanterol 50-25 mcg/dose (Breo Ellipta) 1 inh inhalation DAILY magnesium glycinate 100 mg PO DAILY multivitamin 1 tab PO DAILY norethindrone ac-eth estradiol 1-20 mg-mcg (Microgestin) 1 tab PO DAILY omeprazole 20 mg PO DAILY rosuvastatin 10 mg PO BEDTIME sertraline 200 mg PO DAILY trazodone 25 mg PO DAILY [facility] Medical History Diabetes Sleep apnea Asthma Osteoarthritis Surgical History History of tonsillectomy and adenoidectomy History of carpal tunnel release H/O section History of placement of ear tubes [place] teeth removed H/O tubal ligation Social History Alcohol intake: never Patient Tobacco Use Status: Never used Tobacco Physical Exam Extrem Other: Right knee examination shows a minimal effusion, minimal crepitus with range of motion, no focal tenderness, no instability Results Reviewed Results Reviewed: X-rays of the patient's right knee taken today show mild diffuse joint space narrowing, no acute bony abnormalities Assessment & Plan Assessment & Plan (1) Right knee pain: Code(s): M25.561 - Pain in right knee Category: Medical Plan Ms. Asif presents with right knee pain most likely due to soft tissue contusion. We will hold off on a cortisone injection at this time. She will continue with her mqwmd-lo-oyeeks exercises to prevent stiffness. The patient will continue to work as many hours as she chooses to do so. The patient has mild arthritis in her knee and from my standpoint does not qualify for any type of disability. She will contact me prior to her follow-up appointment next months should any questions or concerns arise. If her discomfort continues at that time we will further discuss the risks and benefits of a cortisone injection. Feel free to call me at any time should questions regarding her orthopedic management arise. I spent 22 minutes in reviewing the patient's records and imaging studies, seeing the patient and documenting in the medical record. Coding Level of Care Code Est Pt Level 3 (15657) Complex EM visit Add On G2211 Diagnoses Right knee pain M25.561
--- OUTSIDE RECORDS SUMMARY | 2024-05-02 14:20 | XMS_ITS ---
Author Organization [facility] Address [address] [facility] [place] [address] Care Team Providers Care [employer] Senior Sergeant Name Role Phone Rosa Bell Primary Care Provider Lulú Bhagat Unavailable [phone] REASON FOR VISIT NS 08/15/2023 Encounters Encounter Location Date Provider [address] [facility] [address] 08/15/2023 Lulú Jordan Plan Of Treatment No Information Progress Notes * Maggie ASIF LDOB:[birth year] (48 yo F)Acc No.[id number]:08/15/2023 Patient:?Maggie Asif :1975???Age:48 Y???Sex:Female Address:[address] [place] [address], [address] , [place] [address] * true * Date:? Generated for Nickolas ramirez/Alistair/eTransmitting on:?05/02/2024 02:19 PM EST
--- OUTSIDE RECORDS SUMMARY | 2024-05-02 14:20 | XMS_ITS ---
Author Organization [facility] sheela Thayer Address [address] [place] [address] Care Team Providers Care Diesel Electrician Name Role Phone Rosa Bell Primary Care Provider Lulú Bhagat [phone] Medications Medication SIG (Take, Route, Frequency, Duration) [...] Active Encounters Encounter Location Date Provider Diagnosis [address] [address] 08/15/2023 Lulú Jordan Plan Of Treatment No Information Progress Notes * Maggie ASIF LDOB:[birth year] (49 yo F)Acc No.[id number]:08/15/2023 Progress Note Patient:?Maggie ASIF Provider:?Lulú Jordan DPM :1975???Age:48 Y???Sex:Female D ate:08/15/2023 Address:[address] [place], [place] [id number] Pcp:Rosa Bell Subjective: * Chief Complaints: * [...] Jordan DPM Date:?09/2023 Generated for Nickolas ramirez/Alistair/Kellie on:?05/02/2024 02:20 PM EST
--- OUTSIDE RECORDS SUMMARY | 2024-05-02 14:20 | XMS_ITS ---
Author Organization [facility] sheela [facility] Address [address] [facility] [place] [address] Care Team Providers Care Warpman Name Role Phone Rosa Bell Primary Care Provider Lulú Bhagat Unavailable [phone] Allergies Allergen (clinical drug ingredient) Drug/Non Drug [...] Problem Status W/U Status Risk Notes Problem [id number] Type 2 diabetes mellitus with polyneuropathy (E11.42) Active confirmed Vital Signs Height 5ft 1in in 05/12/2023 Weight 289 lbs 05/12/2023 BMI 54.6 kg/m2 05/12/2023 Encounters Encounter Location Date Provider Diagnosis [facility] [address] 05/12/2023 Lulú Jordan Plantar fasciitis, bilateral M72.2 [...] * Maggie ASIF LDOB:[birth year] (48 yo F)Acc No.[id number]:05/12/2023 Progress Notes Patient:?Maggie Asif Provider:?Lulú Jordan DPM :1975???Age:48 Y???Sex:Female D ate:05/12/2023 Address:[address] [place] [address], [facility] , [id number] Pcp:Rosa Bell Subjective: * Chief Complaints: * [...] single. ?Occupation: [employer]. 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 Recommendations were [...] Jordan DPM Date:?04/2023 Generated for Nickolas ramirez/Alistair/Kellie on:?05/02/2024 02:20 PM EST History and Physical Notes * HPI [...]
--- OUTSIDE RECORDS SUMMARY | 2024-05-02 14:21 | XMS_ITS | Patient Health Record ---
Author Organization [facility] Address [address] [facility] [place] [address] Care Team Providers Care Bead Flipper Name Role Phone Rosa Bell Primary Care Provider Lulú Bhagat Unavailable [phone] Allergies Allergen (clinical drug ingredient) Drug/Non Drug [...] Problem Status W/U Status Risk Notes Problem [id number] Type 2 diabetes mellitus with polyneuropathy (E11.42) Active confirmed Vital Signs Height 5ft 1in in 05/12/2023 Weight 289 lbs 05/12/2023 BMI 54.6 kg/m2 05/12/2023 Encounters Encounter Location Date [facility] [place] [address] 05/12/2023 Lulú Jordan Plantar fasciitis, bilateral M72.2 ; Type 2 diabetes mellitus with polyneuropathy E11.42 ; Calcaneal spur, left M77.32 ; Calcaneal spur, right M77.31 ; Acquired pes planus, left M21.42 and Acquired pes planus, right M21.41 [facility] [address] [place] [address] 08/15/2023 Lulú Jordan Assessments Encounter Date Diagnosis [...] Insured Coverage Start Date Coverage End Date [facility] [address] [address] [place] [address] [id number] Maggie Asif Self - patient is the insured Medical (General) History Medical History History ICD Code Anxiety asthma Back,Hip,and Knee pain covid-19 Depression type II diabetes Headaches/Migraines sinusitis Warts Chicken pox Sleep apnea Endometriosis Surgical History Surgery Date(Month/Year) tubal ligation 2015 wisdom teeth extraction Tubes in/out of ears Carpel Tunnel Revision 2013 tonsillectomy
== END 2024-05-02 13:17 | disposition home or self-care (01) ==
PROVIDERS: PCP Physician Assistant; Visit Provider Orthopaedic Surgery
DX: M25.561 Pain in right knee (principal)
CPT/HCPCS: 99213; G2211